=== PATIENT | female | born 1955 | race Caucasian/White ===

== ENCOUNTER 2019-03-23 08:14 | Day surgery (SDC) | payer OTHER ==
[2019-03-23] MEDS ORDERED: LIDOCAINE 2% (SDV) 5 ML INJ (10:10)
[2019-03-23] MEDS ORDERED: PROPOFOL 40 ML (10:10)
[2019-03-23] MEDS ORDERED: EPHEDrine 25 MG/5 ML SYG (10:57)
[2019-03-23] MEDS ORDERED: ONDANSETRON 4 MG INJ IV (11:00)
== END 2019-03-23 11:52 | disposition home or self-care (01) ==
LOC: GIL 08:14
DX: Z12.11 Encounter for screening for malignant neoplasm of colon (principal); K64.9 Unspecified hemorrhoids; E11.9 Type 2 diabetes mellitus without complications; E03.9 Hypothyroidism, unspecified; Z79.84 Long term (current) use of oral hypoglycemic drugs
CPT/HCPCS: 45378; 82962